=== PATIENT | male | born 1985 | race Hispanic/Latino ===

== ENCOUNTER 2018-04-03 06:27 | Emergency (ER) | payer OTHER ==
[2018-04-03] MEDS: ONDANSETRON 4MG/2ML VIAL (J2405) IV ×2 (07:05→09:17)
[2018-04-03] MEDS: MORPHINE 4 MG/ML 1ML VIAL/SYRINGE (J2270) IV (07:05)
[2018-04-03] MEDS: NS 1,000 ML IV (07:06)
[2018-04-03 07:26] LABS: BASO % 0.2 % (0.0-1.0); EOS # 0.1 10^3/uL (0.0-0.50); EOS % 0.5 % (0.0-3.0); HEMATOCRIT 49.5 % (42.0-52.0); HEMOGLOBIN 17.2 g/dl (13.5-17.5); IMMATURE GRANULOCYTE % 0.4 % (0-3.0); LYMPH # 0.5 10^3/uL (1.5-4.5); LYMPH % 4.8 % (24.0-44.0); MEAN CORPUSCULAR HEMOGLOBIN 28.6 pg (27.0-33.0); MEAN CORPUSCULAR HGB CONC 34.7 g/dl (32.0-36.5); MEAN CORPUSCULAR VOLUME 82.4 fl (80.0-96.0); MONO # 0.3 10^3/uL (0.0-0.8); MONO % 3.3 % (0.0-5.0); NEUTROPHILS # 9.4 10^3/uL (1.8-7.7); NEUTROPHILS % 90.8 % (36.0-66.0); PLATELET COUNT, AUTOMATED 213 10^3/uL (150-450); RED BLOOD COUNT 6.01 10^6/uL (4.30-6.10); RED CELL DISTRIBUTION WIDTH 12.3 % (11.5-14.5); WHITE BLOOD COUNT 10.4 10^3/uL (4.0-10.0)
[2018-04-03 07:47] LABS: ALBUMIN 4.4 GM/DL (3.2-5.2); ALBUMIN/GLOBULIN RATIO 1.26 (1.00-1.93); ALKALINE PHOSPHATASE 87 U/L (45-117); ALT/SGPT 41 U/L (12-78); AMYLASE 47 U/L (25-115); ANION GAP 8 MEQ/L (8-16); AST/SGOT 19 U/L (7-37); BILIRUBIN,DIRECT 0.2 MG/DL (0.0-0.2); BILIRUBIN,TOTAL 1.1 MG/DL (0.2-1.0); BLOOD UREA NITROGEN 16 MG/DL (7-18); CALCIUM LEVEL 8.6 MG/DL (8.5-10.1); CARBON DIOXIDE LEVEL 23 MEQ/L (21-32); CHLORIDE LEVEL 106 MEQ/L (98-107); CREATININE FOR GFR 0.98 MG/DL (0.70-1.30); GLOMERULAR FILTRATION RATE > 60.0 (>60); GLUCOSE, FASTING 132 MG/DL (70-100); LIPASE 63 U/L (73-393); POTASSIUM SERUM 4.1 MEQ/L (3.5-5.1); SODIUM LEVEL 137 MEQ/L (136-145); TOTAL PROTEIN 7.9 GM/DL (6.4-8.2)
[2018-04-03 07:58] LABS: AMORPHOUS SEDIMENT RFX SMALL (NEGATIVE); KETONE, URINE AUTO RFX NEGATIVE (NEGATIVE); MUCUS, URINE RFX SMALL (NEGATIVE); NITRITE, URINE AUTO RFX NEGATIVE (NEGATIVE); RBC, URINE AUTO RFX 1 /HPF (0-3); SPECIFIC GRAVITY UR AUTO RFX 1.029 (1.002-1.035); SQUAM EPITHELIAL CELL UR AURFX 0 /HPF (0-6); WBC, URINE AUTO RFX 0 /HPF (0-3)
[2018-04-03] MEDS ORDERED: ISOVUE-370 76% 100ML VIAL (Q9967) As Ordered (08:00)
[2018-04-03 08:07] LABS: LEUKOCYTE ESTERASE UR AUTO RFX TRACE (NEGATIVE)
== END 2018-04-03 09:18 | disposition home or self-care (01) ==
LOC: M ED 06:27
DX: R11.2 Nausea with vomiting, unspecified (principal); Z87.891 Personal history of nicotine dependence; Z79.899 Other long term (current) drug therapy
CPT/HCPCS: J2270

== ENCOUNTER 2018-12-12 22:02 | Inpatient (IN) | payer OTHER ==
[~2018-12-12] VITALS: Ht 188 cm; Wt 104.0 kg
[~2018-12-12 22:02] MED LIST: ATIV2TAB PO; DICY10CA13 PO; NAPR-837 PO; WELLTAB38 PO; ZOFR4TAB14 PO
[2018-12-12 22:45] LABS: HEMATOCRIT 44.9 % (42.0-52.0); HEMOGLOBIN 15.9 g/dl (13.5-17.5); MEAN CORPUSCULAR HEMOGLOBIN 29.3 pg (27.0-33.0); MEAN CORPUSCULAR HGB CONC 35.4 g/dl (32.0-36.5); MEAN CORPUSCULAR VOLUME 82.8 fl (80.0-96.0); PLATELET COUNT, AUTOMATED 251 10^3/uL (150-450); RED BLOOD COUNT 5.42 10^6/uL (4.30-6.10); WHITE BLOOD COUNT 8.7 10^3/uL (4.0-10.0)
[2018-12-12] MEDS ORDERED: ATIV1TAB10 PO (22:54)
[2018-12-12] MEDS ORDERED: MELO15TA28 PO (22:54)
[2018-12-12 23:05] LABS: AMPHETAMINES LEVEL URINE NEGATIVE (NEGATIVE); BARBITURATES URINE NEGATIVE (NEGATIVE); BENZODIAZEPINES URINE NEGATIVE (NEGATIVE); CANNABINOIDS URINE NEGATIVE (NEGATIVE); COCAINE METABOLITE URINE NEGATIVE (NEGATIVE); METHADONE URINE NEGATIVE (NEGATIVE); OPIATES URINE NEGATIVE (NEGATIVE); PHENCYCLIDINE URINE NEGATIVE (NEGATIVE)
[2018-12-12 23:23] LABS: ACETAMINOPHEN LEVEL < 2.0 UG/ML (10.0-30.0); ALT/SGPT 52 U/L (12-78); BILIRUBIN,DIRECT 0.1 MG/DL (0.0-0.2); BILIRUBIN,TOTAL 0.3 MG/DL (0.2-1.0); BLOOD UREA NITROGEN 10 MG/DL (7-18); CALCIUM LEVEL 8.7 MG/DL (8.5-10.1); CARBON DIOXIDE LEVEL 23 MEQ/L (21-32); CHLORIDE LEVEL 111 MEQ/L (98-107); CREATININE FOR GFR 0.73 MG/DL (0.70-1.30); ETHYL ALCOHOL (ETHANOL) 0.251 % (0.000-0.010); GLOMERULAR FILTRATION RATE > 60.0 (>60); GLUCOSE, FASTING 139 MG/DL (70-100); POTASSIUM SERUM 3.9 MEQ/L (3.5-5.1); SALICYLATE LEVEL < 1.7 MG/DL (5.0-30.0); SODIUM LEVEL 143 MEQ/L (136-145); TOTAL PROTEIN 7.5 GM/DL (6.4-8.2)
[2018-12-14] MEDS ORDERED: LORazepam 0.5 MG TAB PO ONE (14:30)
[2018-12-14] MEDS ORDERED: MOM 30ML SUSPENSION UDC PO PRN ×2 (16:15)
[2018-12-14] MEDS ORDERED: traZODone 50 MG TAB PO PRN (16:15)
[2018-12-14] MEDS ORDERED: ACETAMINOPHEN TAB 650MG DOSE (2X325MG) PO PRN ×2 (16:15)
[2018-12-14] MEDS ORDERED: OLANZapine ORAL DISINTEGRATING TAB 5MG PO PRN (16:15)
[2018-12-14] MEDS ORDERED: LORA1TAB12 PO (16:16)
[2018-12-14 17:42] VITALS: BP 128/82
[2018-12-14 18:10] VITALS: BP 129/85
[2018-12-14] MEDS: OLANZapine ORAL DISINTEGRATING TAB 5MG PO PRN (18:29)
[2018-12-14] MEDS: traZODone 50 MG TAB PO PRN (20:54)
--- NOTE | 2018-12-14 22:16 | HPEPDOC ---
General Date of Admission Dec 14, 2018 at 16:01 Date of Service: Dec 14, 2018 Attending Physician: DAYSI TRAVIS MD Chief Complaint The patient is a 33-year-old male admitted with a reason for visit of MHE. 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 Patient had admitted to suicidal ideation to family members who called his command. He planned to lock himself up in a car in a garage, start the engine, to kill himself. He was admitted to inpatient psychiatric unit for further evaluation and treatment. On assessment, he denies any chest pain, shortness of breath, weakness, nausea, chills, fever. Home Medications Scheduled PRN Lorazepam (Lorazepam) 1 Mg Tablet, 1 MG PO BID PRN for ANXIETY, (Reported) Meloxicam (Meloxicam) 15 Mg Tablet, 15 MG PO DAILY PRN for PAIN, (Reported) Allergies Coded Allergies: No Known Allergies (Unverified , 09/10/17) Past Medical History Medical History Depression Anxiety Nicotine dependence Alcohol abuse Surgical History Denies surgical history Family History Denies any family history Social History Smokes half a pack of cigarettes a day, weekly alcohol intake, denies polysubstance abuse. A-FIB/CHADSVASC A-FIB History Current/History of A-Fib/PAF?: No Current PO Anticoag Therapy: No Review of Systems Other systems A pertinent 10 point review of systems was completed, negative except as stated in history of presenting illness Physical Examination Other physical findings GENERAL: NAD SKIN : Warm, dry intact HEENT: Atraumatic, normocephalic, PERRL, moist mucous membrane CARDIOVASCULAR: Regular rate and rhythm, S1S2, no JVD, no edema, distal pulses + and palpable RESP: CTAB, no accessory muscle use noted ABDOMEN: BS+ non distended non tender MS: no joint deformities NEURO: Alert and oriented x 3, CN2-12 grossly intact PSYCH: no anxiety or agitation, appropriate mood and affect. Vital Signs Vital Signs Date Time Temp Pulse Resp B/P (MAP) Pulse Ox O2 Delivery O2 Flow Rate FiO2 12/14/18 18:10 99.0 83 16 129/85 (100) 12/14/18 17:42 98 12/14/18 15:24 Room Air Assessment/Plan Depression with Suicidal ideation Nicotine dependence Anxiety PLAN Patient currently has no underlying medical comorbidities requiring medical evaluation and management and follow-up Management of acute suicidal ideation by primary team Please reconsult medical team as needed Plan / VTE VTE Prophylaxis Ordered?: No VTE Exclusion Mechanical Proph: Low Risk for VTE [employer] Dec 14, 2018 22:16
[2018-12-15 06:43] VITALS: BP 100/58
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
[2018-12-15] MEDS: OLANZapine ORAL DISINTEGRATING TAB 5MG PO PRN (17:01)
[2018-12-15 18:08] VITALS: BP 127/66
[2018-12-15] MEDS: traZODone 50 MG TAB PO PRN (21:13)
[2018-12-16 06:43] VITALS: BP 114/59
--- NOTE | 2018-12-16 10:03 | MHDSPDOC ---
[facility] Discharge Summary Discharge Summary DATE OF ADMISSION: Dec 14, 2018 at 16:01 DATE OF DISCHARGE: 12/16/18 Discharge Poli Gaines Age 33 Male Date of : 1985 Date of Service: 12/16/2018 Diagnoses Unspecified anxiety disorder. Rule out substance-induced anxiety disorder. Alcohol use disorder, severe. Tobacco use disorder, severe. History of Present Illness Patient, a 33-year old man, presented to [facility] fairly intox icated on alcohol, reporting a plan to kill himself by carbon monoxide. Subsequently, after he had become less intoxicated, he redacted the statement. However, he has been noted to be on a high-risk list after a recent sleepwalking episode while he was on deployment in [place] where he was found walking asleep with a gun in his hand. When the patient was met with, he described that in general he does have some anxiety and has been treated for it, but doesn't currently take medications. He described that he does not remember the episode significantly, but that he had "drunk too much." Collateral information from his chain of command does reveal a picture of someone diagnosed with a form of anxiety and depression, but is not currently medication compliant. He was sent back from [place] early from deployment due to concerns related to the sleepwalking episode. Patient describes the sleepwalking episode as a fairly unusual situation that he never experienced prior, or he was found walking with an unloaded gun in his barracks. Consultants Involved Hospitalist/PCP screening Treatment and Progress On The Unit The patient was admitted to the inpatient unit after being observed in the ER for several days due to reported back up in placement. The patient had denied any suicidal thoughts after presenting to the emergency room. He was noted to be fairly intoxicated upon presentation and subsequently was observed to not demonstrate any suicidal or homicidal ideation. He did demonstrate some lack of insight into the severity of his alcohol problems and anxiety problems in the at this time. The patient was observed on the inpatient unit and req uested discharge due to the patient no longer meeting involuntary criteria. He was triaged for discharge as he did not wish to stay longer on a voluntary status. Discussion with [facility]. Initiate his transition back to [facility] and he was discharged without any incident. Discharge Assessment The patient, a 33-year-old man with a likely substance-induced anxiety disorder and severe alcoholism, presents to [facility] after being fairly intoxicated and reporting a suicidal plan. Due to the resolution of his symptoms quite quickly without medications is a very strong possibility if not diagnostic that the patient's anxiety disorder is likely primarily from alcohol rather than a primary anxiety disorder Mental Status Examination General: Well dressed with good hygiene Speech: Spontaneous and fluid Thought processes: Linear and logical MSK: Smooth and coordinated gait, no signs of tremors or involuntary orofacial movements Thought content: Future orientated Abstract reasoning, and computation: Intact Description of associations: Intact Description of abnormal or psychotic thoughts: Denies any suicidal or homicidal ideation. Denies any auditory or visual hallucinations. Does not appear to be responding to internal stimuli. Does not appear to be endorsing any bizarre or paranoid ideation. Judgment: fair Insight: fair Orientation: Alert and orientated 3 Cognition: Grossly normal Recent and remote memory: Intact Attention span and concentration: Intact Fund of knowledge: Adequate Mood: "okay" Affect: Euthymic with a full range Follow Up The social work team worked during the predischarge meeting in order to evaluate for further issues of lethality address them fully before discharge. They worked on safety planning with the patient's family members in order to ensure that the patient will have a safe and effective discharge. The patient was discharged on no medications as he reported that he did not wish to "try any." The patient reported that he had been prescribed lorazepam after a recent inpatient stay in [facility]. He had 4 tablets left and it was asked to this provider whether destruction of those would be ideal. The chain of command reported the patient would be in the barracks and have no access to alcohol of which the Ativan previously prescribed would not need to be destroyed as it was a fairly small quantity that would likely pose little to no danger to the patient and without alcohol could be better evaluated as an outpatient. Time Spent The amount of time spent in the coordination of care for this patient was approximately 30 minutes. Friday Vital Signs/I&Os Vital Signs Date Time Temp Pulse Resp B/P (MAP) Pulse Ox O2 Delivery O2 Flow Rate FiO2 12/16/18 06:43 97.1 58 16 114/59 (77) 12/14/18 17:42 98 12/14/18 15:24 Room Air Medications Scheduled PRN Meloxicam (Meloxicam) 15 Mg Tablet, 15 MG PO DAILY PRN for PAIN, (Reported) Allergies Coded Allergies: No Known Allergies (Unverified , 09/10/17) ULICES FORMAN DO Dec 16, 2018 10:03
== END 2018-12-16 11:30 | disposition home or self-care (01) | DRG 898 ==
LOC: M ED 22:02 → M ED INP 12-14 16:01 → M PSY 12-14 17:14
PROVIDERS: ADMIT Psychiatry & Neurology Addiction Medicine; ATTEND Psychiatry & Neurology Addiction Medicine
DX: F19.94 Other psychoactive substance use, unspecified with psychoactive substance-induced mood disorder (principal); R45.851 Suicidal ideations; F10.10 Alcohol abuse, uncomplicated; F17.200 Nicotine dependence, unspecified, uncomplicated; F41.9 Anxiety disorder, unspecified

== ENCOUNTER → 2020-01-20 | Outpatient (CLI) | payer OTHER ==
[~2020-01-20] MED LIST changes: +ATIV1TAB10 PO; +LORA1TAB4 PO; +MELO15TA28 PO; +METHACHOLINE KIT (J7674) INH ONE
--- NOTE | 2020-02-11 14:05 | METHCHAL ---
ORDERED BY: Liyah Knapp RN, ANP. QUALITY: Study of excellent technical quality. PROCEDURE: Under protocol, methacholine was administered. A dose of 10 mg or 63.75 CDUs, a 24% decline of the FEV1 was noted. PC of 6.10 was significant. Flow rates did return to baseline post bronchodilator administration. IMPRESSION: Positive methacholine challenge study MTDD
--- NOTE | 2020-02-14 07:23 | PFTRPT ---
Visit Date: 01/20/2020 Second ID: [id number] Referring Doctor: Liyah Oswald Height: 72.00 Inches Weight: 268.00 Lbs BSA: 2.41 Diagnosis: R06.02 QUALITY: Study of excellent technical quality. PROCEDURE: Under protocol, methacholine was administered. At a dose of 10 mg or 63.875 CDUs. A 24% decline of the FEV1 was noted. PC of 6.2 is significant. Flow rates did return to baseline post-bronchodilator administration. IMPRESSION: Positive methacholine challenge study. MTDD
== END ==
LOC: M CARPUL 13:31
PROVIDERS: ATTEND Nurse Practitioner Adult Health
DX: R06.02 Shortness of breath (principal)
CPT/HCPCS: 94070; J7674